=== PATIENT | male | born 1950 | race Caucasian/White ===

== ENCOUNTER 2016-07-15 16:37 | Inpatient (IN) | payer SELFPAY ==
[~2016-07-15] VITALS: Ht 185.4 cm; Wt 130.0 kg
[2016-07-15] VITALS (8 sets, daily range): BP systolic 118–148; BP diastolic 62–75; PULSE 96–105; RESP 16–22; TEMP 97.8; O2SAT 79–93
[2016-07-15] MEDS ORDERED: IPRAAER INH (17:18)
[2016-07-15] MEDS ORDERED: SPIRCAP INH (17:18)
[2016-07-15] MEDS ORDERED: NOVOLOGP2 SQ (17:18)
[2016-07-15] MEDS ORDERED: NITR0.2D T-DERMAL (17:18)
[2016-07-15] MEDS ORDERED: ATOR40TA16 PO (17:18)
[2016-07-15] MEDS ORDERED: LANTUS2P SQ (17:18)
[2016-07-15] MEDS ORDERED: LISI-515 PO (17:18)
[2016-07-15] MEDS ORDERED: METO25TA3 PO (17:18)
[2016-07-15] MEDS ORDERED: ASPI81CH CHEW (17:18)
[2016-07-15] MEDS ORDERED: FURO20TA PO (17:18)
--- NOTE | 2016-07-15 17:18 | PD ---
HPI . fatigue x 3 days Chief Complaint: General Weakness Time Seen by Provider: 17:38 Travel History International Travel<30 days: No Contact w/Intl Traveler<30days: No Traveled to known affect area: No History of Present Illness HPI 65 yr old male visiting from [place] with HTN, HLD, DM, COPD requiring oxygen, Old IA in 2009, CHF, and OA here with c/o generalized fatigue/weakness. Patient started off with diarrhea 3 days ago, which is now subsided. He is concerned because he is very weak and has not had much of an appetite. Despite not eating, patient continued with lantus administration and had an episode where he was weak and had a very low blood sugar. He thinks he may have had a fever a few days ago, but never checked his temperature. He also reports some right shoulder/back pain that was present and now gone. He is concerned because of his past medical history. He is accompanied by his . At the time of examination, patient admits to weakness/fatigue, which is what brought him here. He is also experiencing SOB and nausea. He denies any fever, chills, cold sxs, cp, vomiting, abdominal pain or diarrhea. PFSH Past Medical History Cardiovascular Problems: Yes (2009) Congestive Heart Failure: Yes COPD: Yes Coronary Artery Disease: Yes Diabetes: Yes Patient Takes Glucophage: Yes Diminished Hearing: No Hypertension: Yes Respiratory: Yes (COPD, O2) Myocardial Infarction: Yes Past Surgical History Cholecystectomy: Yes Other Surgery: Yes (hemmorhoidectomy) Social History Alcohol Use: Yes Tobacco Use: Yes (quit) Substance Use: No Allergies-Medications (Allergen,Severity, Reaction): Coded Allergies: Penicillin (Verified Allergy, Intermediate, Rash, 07/15/16) Reported Meds & Prescriptions Reported Meds & Active Scripts Active Reported Novolog Inj (Insulin Aspart) 1,000 Unit/10 Ml Vial 0 SQ DIRECTED Sliding Scale as directed. Lantus Inj (Insulin Glargine) 100 Unit/Ml Inj 60 Units SQ BID Combivent Respimat Inh (Ipratropium-Albuterol Inh) 20-100 Jail/Act Aero 1 Puff INH QID Spiriva Handihaler (Tiotropium Inh) 18 Mcg Cap 18 Mcg INH DAILY 1 capsule = 18 mcg Nitro-Dur Patch 24 HR (Nitroglycerin) 0.2 Mg/Hr Patch 0.2 Mg T-DERMAL DAILY Aspirin 81 Mg Chew 81 Mg CHEW DAILY Furosemide 20 Mg Tab 20 Mg PO DAILY Atorvastatin (Atorvastatin Calcium) 40 Mg Tab 40 Mg PO HS Lisinopril 20 Mg Tab 20 Mg PO DAILY Metoprolol Tartrate 25 Mg Tab 20 Mg PO BID Review of Systems General / Constitutional: No: Fever Eyes: No: Visual changes HENT: No: Headaches Cardiovascular: No: Chest Pain or Discomfort Respiratory: No: Shortness of Breath Gastrointestinal: Positive: Nausea, No: Vomiting, Diarrhea, Abdominal Pain Genitourinary: No: Dysuria Musculoskeletal: No: Pain Skin: No Rash Neurologic: No: Weakness Psychiatric: No: Depression Endocrine: No: Polydipsia Hematologic/Lymphatic: No: Easy Bruising Physical Exam Narrative GENERAL: AAOX3, on nasal canula, obese, in no acute distress HEAD: normocephalic, atraumatic EARS: normal pinna, no deformities EYES: conjunctiva clear, no injection, no icterus, MOUTH: moist mucous membranes, NECK: supple without any lymphadenopathy RESP: diminished breath sounds b/l, no rhonchi, wheezing or rales CARD: RRR, s1 and s2, no murmur, rubs, or gallop ABD: soft, nontender, nondistended, normoactive bowel sounds NEURO: grossly intact, no focal deficits, CN 2-12 intact, UE & LE strength normal, bottom buffer normal b/l BACK: no spinal tenderness, no paraspinal tenderness, no obvious deformity PSYCH: AAOx3, normal affect Data Data Last Documented VS Vital Signs Date Time Temp Pulse Resp B/P Pulse Ox O2 Delivery O2 Flow Rate FiO2 07/15/16 22:42 96 18 138/62 91 Room Air 07/15/16 19:29 5 07/15/16 16:44 97.8 Orders Complete Blood Count With Diff (07/15/16 17:29) Comprehensive Metabolic Panel (07/15/16 17:29) Chest, Single Ap (07/15/16 17:29) Electrocardiogram (07/15/16 17:29) Ckmb (Isoenzyme) Profile (07/15/16 17:29) Magnesium (Mg) (07/15/16 17:29) Prothrombin Time / Inr (Pt) (07/15/16 17:29) Act Partial Throm Time (Ptt) (07/15/16 17:29) Troponin I (07/15/16 17:29) Ecg Monitoring (07/15/16 17:29) Bilateral Bp Monitoring (07/15/16 17:29) Iv Access Insert/Monitor (07/15/16 17:29) Oximetry (07/15/16 17:29) Oxygen Administration (07/15/16 17:29) Sodium Chloride 0.9% Flush (Ns Flush) (07/15/16 17:30) Sodium Chloride 0.9% Flush (Ns Flush) (07/15/16 18:00) Methylprednisolone So Succ Inj (Solumedr (07/15/16 18:00) Albuterol-Ipratropium Neb (Duoneb Neb) (07/15/16 18:00) Ct Pulmonary Angiogram (07/15/16 ) Consult Vascular Access Team (07/15/16 ) B-Type Natriuretic Peptide (07/15/16 18:39) Iohexol 350 Inj (Omnipaque 350 Inj) (07/15/16 20:26) Ceftriaxone Inj (Rocephin Inj) (07/15/16 22:15) Azithromycin Inj (Zithromax Inj) (07/15/16 22:15) Admit Order (Ed Use Only) (07/15/16 22:40) Place In Observation (07/15/16 ) Vital Signs (Adult) Q4H (07/15/16 22:40) Activity Oob With Assistance (07/15/16 22:40) Office Equipment Technician / Telemetry .CONTINUOUS (07/15/16 22:40) Diet Heart Healthy (07/16/16 Breakfast) Sodium Chloride 0.9% Flush (Ns Flush) (07/15/16 22:45) Sodium Chloride 0.9% Flush (Ns Flush) (07/16/16 09:00) Basic Metabolic Panel (Bmp) (07/16/16 06:00) Complete Blood Count With Diff (07/16/16 06:00) Resp Oxygen Oj C Titrat 1-4 L (07/15/16 ) Enoxaparin Inj (Lovenox Inj) (07/16/16 09:00) Naloxone Inj (Narcan Inj) (07/15/16 22:45) Levofloxacin 750 Mg Premix Inj (Levaquin (07/16/16 09:00) Bedside Glucose JOSE ANTONIO.AC&HS (07/15/16 22:44) ^ Blood Glucose Goal (Criteria (07/15/16 22:44) ^ Hypoglycemia 51 - 69 Mg/Dl (07/15/16 22:44) ^ Hypoglycemia 50 Mg/Dl Or < (07/15/16 22:44) ^ Notify Dr: Other (07/15/16 22:44) Dextrose 50% In Patrice (Vial) Inj (D50w (Vi (07/15/16 22:45) Glucagon Inj (Glucagon Inj) (07/15/16 22:45) Medium Novolog Scale (07/16/16 07:00) Diet 1800 Ada Cons Carb (07/16/16 Breakfast) Labs Laboratory Tests Test 07/15/16 18:15 White Blood Count 10.5 TH/MM3 Red Blood Count 4.62 MIL/MM3 Hemoglobin 14.1 GM/DL Hematocrit 42.6 % Mean Corpuscular Volume 92.2 FL Mean Corpuscular Hemoglobin 30.6 PG Mean Corpuscular Hemoglobin 33.2 % Concent Red Cell Distribution Width 13.9 % Platelet Count 242 TH/MM3 Mean Platelet Volume 9.2 FL Neutrophils (%) (Auto) 69.2 % Lymphocytes (%) (Auto) 14.4 % Monocytes (%) (Auto) 10.3 % Eosinophils (%) (Auto) 5.5 % Basophils (%) (Auto) 0.6 % Neutrophils # (Auto) 7.3 TH/MM3 Lymphocytes # (Auto) 1.5 TH/MM3 Monocytes # (Auto) 1.1 TH/MM3 Eosinophils # (Auto) 0.6 TH/MM3 Basophils # (Auto) 0.1 TH/MM3 CBC Comment DIFF FINAL Differential Comment Prothrombin Time 10.2 SEC Prothromb Time International 0.9 RATIO Ratio Activated Partial 29.9 SEC Thromboplast Time Sodium Level 134 MEQ/L Potassium Level 4.4 MEQ/L Chloride Level 94 MEQ/L Carbon Dioxide Level 35.4 MEQ/L Anion Gap 5 MEQ/L Blood Urea Nitrogen 25 MG/DL Creatinine 0.97 MG/DL Estimat Glomerular Filtration 78 ML/MIN Rate Random Glucose 119 MG/DL Calcium Level 9.1 MG/DL Magnesium Level 1.9 MG/DL Total Bilirubin 0.3 MG/DL Aspartate Amino Transf 21 U/L (AST/SGOT) Alanine Aminotransferase 17 U/L (ALT/SGPT) Alkaline Phosphatase 115 U/L Total Creatine Kinase 81 U/L Troponin I LESS THAN 0.02 NG/ML B-Type Natriuretic Peptide 44 PG/ML Total Protein 7.6 GM/DL Albumin 2.6 GM/DL MDM Medical Decision Making Medical Screen Exam Complete: Yes Emergency Medical Condition: Yes Medical Record Reviewed: Yes (no records on file ) Differential Diagnosis viral gastroenteritis, PNA, ACS, symptomatic anemia, COPD exacerbation Narrative Course 65 yr old male visiting from [place] with HTN, HLD, DM, COPD requiring oxygen, Old IA in 2009, CHF, and OA here with c/o generalized fatigue/weakness. Patient started off with diarrhea 3 days ago, which is now subsided. He is concerned because he is very weak and has not had much of an appetite. Despite not eating, patient continued with lantus administration and had an episode where he was weak and had a very low blood sugar. He thinks he may have had a fever a few days ago, but never checked his temperature. He also reports some right shoulder/back pain that was present and now gone. He is concerned because of his past medical history. He is accompanied by his . At the time of examination, patient admits to weakness/fatigue, which is what brought him here. He is also experiencing SOB and nausea. He denies any fever, chills, cold sxs, cp, vomiting, abdominal pain or diarrhea. Patient seen and examined. Case discussed with Dr. Felton Recommend labs, CXR, Cardiac enzymes, Mag, Labs reviewed, CBC fairly unremarkable. BMP with mild low Na+, elevated BUN, decreased albumin CXR without any acute process. CT angio: No PE, however + consolidation in right upper lobe, along with right hilar mass, granulomatous lung disease (no reports of TB per patient) I have personally discussed findings with patient and his . Recommend outpt f/u regarding mass. Azithromycin and Rocephin in ED. Admit with Pneumonia, Fatigue and Hypoxemia. 2239: Discussed with Dr. Oneal: Patient admitted to 23 hour obs. Diagnosis Primary Impression: Right upper lobe pneumonia Qualified Code: J18.1 - Pneumonia of right upper lobe due to infectious organism Additional Impression: Hypoxemia Admitting Information Admitting Physician Requests: Admit Condition: Stable Yuko Brian Jul 15, 2016 17:18
[2016-07-15] MEDS ORDERED: SODIUM CHLORIDE 0.9% FLUSH 5 ML FLUSH IVF PRN ×2 (17:30→18:00)
[2016-07-15] MEDS ORDERED: methylPREDNISolone SOD SUCC 125 MG/2 ML VIAL IVP ONE (18:00)
--- NOTE | 2016-07-15 18:05 | PD ---
Data Data Last Documented VS Vital Signs Date Time Temp Pulse Resp B/P Pulse Ox O2 Delivery O2 Flow Rate FiO2 07/15/16 22:42 96 18 138/62 91 Room Air 07/15/16 19:29 5 07/15/16 16:44 97.8 Orders Complete Blood Count With Diff (07/15/16 17:29) Comprehensive Metabolic Panel (07/15/16 17:29) Chest, Single Ap (07/15/16 17:29) Electrocardiogram (07/15/16 17:29) Ckmb (Isoenzyme) Profile (07/15/16 17:29) Magnesium (Mg) (07/15/16 17:29) Prothrombin Time / Inr (Pt) (07/15/16:29) Act Partial Throm Time (Ptt) (07/15/16:29) Troponin I (07/15/16 17:29) Ecg Monitoring (07/15/16 17:29) Bilateral Bp Monitoring (07/15/16 17:29) Iv Access Insert/Monitor (07/15/16 17:29) Oximetry (07/15/16 17:29) Oxygen Administration (07/15/16 17:29) Sodium Chloride 0.9% Flush (Ns Flush) (07/15/16 17:30) Sodium Chloride 0.9% Flush (Ns Flush) (07/15/16 18:00) Methylprednisolone So Succ Inj (Solumedr (07/15/16 18:00) Albuterol-Ipratropium Neb (Duoneb Neb) (07/15/16 18:00) Ct Pulmonary Angiogram (07/15/16 ) Consult Vascular Access Team (07/15/16 ) B-Type Natriuretic Peptide (07/15/16 18:39) Iohexol 350 Inj (Omnipaque 350 Inj) (07/15/16 20:26) Ceftriaxone Inj (Rocephin Inj) (07/15/16 22:15) Azithromycin Inj (Zithromax Inj) (07/15/16 22:15) Admit Order (Ed Use Only) (07/15/16 22:40) Labs Laboratory Tests Test 07/15/16 18:15 White Blood Count 10.5 TH/MM3 Red Blood Count 4.62 MIL/MM3 Hemoglobin 14.1 GM/DL Hematocrit 42.6 % Mean Corpuscular Volume 92.2 FL Mean Corpuscular Hemoglobin 30.6 PG Mean Corpuscular Hemoglobin 33.2 % Concent Red Cell Distribution Width 13.9 % Platelet Count 242 TH/MM3 Mean Platelet Volume 9.2 FL Neutrophils (%) (Auto) 69.2 % Lymphocytes (%) (Auto) 14.4 % Monocytes (%) (Auto) 10.3 % Eosinophils (%) (Auto) 5.5 % Basophils (%) (Auto) 0.6 % Neutrophils # (Auto) 7.3 TH/MM3 Lymphocytes # (Auto) 1.5 TH/MM3 Monocytes # (Auto) 1.1 TH/MM3 Eosinophils # (Auto) 0.6 TH/MM3 Basophils # (Auto) 0.1 TH/MM3 CBC Comment DIFF FINAL Differential Comment Prothrombin Time 10.2 SEC Prothromb Time International 0.9 RATIO Ratio Activated Partial 29.9 SEC Thromboplast Time Sodium Level 134 MEQ/L Potassium Level 4.4 MEQ/L Chloride Level 94 MEQ/L Carbon Dioxide Level 35.4 MEQ/L Anion Gap 5 MEQ/L Blood Urea Nitrogen 25 MG/DL Creatinine 0.97 MG/DL Estimat Glomerular Filtration 78 ML/MIN Rate Random Glucose 119 MG/DL Calcium Level 9.1 MG/DL Magnesium Level 1.9 MG/DL Total Bilirubin 0.3 MG/DL Aspartate Amino Transf 21 U/L (AST/SGOT) Alanine Aminotransferase 17 U/L (ALT/SGPT) Alkaline Phosphatase 115 U/L Total Creatine Kinase 81 U/L Troponin I LESS THAN 0.02 NG/ML B-Type Natriuretic Peptide 44 PG/ML Total Protein 7.6 GM/DL Albumin 2.6 GM/DL [facility] Supervised Visit with ODELL: Yes Narrative Course I, Dr. Felton, have reviewed the advance practice practitioner's documentation and am in agreement, met with the patient face to face, made the diagnosis, and the medical decision making was done by me. *My assessment and Findings: Patient is a 65-year-old male presents emergency department for evaluation of generalized weakness and shortness of breath. Patient did just travel from [place] down to [place]. No history of blood clots in the past. Does have a history of COPD and is on home oxygen. Patient's lungs are clear he is mildly tachycardic and requiring increased oxygen over baseline. Likely will be admitted for COPD exacerbation versus PE with a CT pending. Patient is morbidly obese lung sounds are clear minimal tachypnea. Scripts Levofloxacin (Levaquin)750 Mg Nea086 Mg PO DAILY #5 TAB Ref 0 Prov:Mary Peraza PA-C 07/16/16 Kike Felton MD Jul 15, 2016 18:05
[2016-07-15 18:52] LABS: AUTOMATED NEUTROPHIL # 7.3 TH/MM3 (1.8-7.7); BASOPHIL # 0.1 TH/MM3 (0-0.2); BASOPHIL % 0.6 % (0.0-2.0); EOSINOPHIL # 0.6 TH/MM3 (0-0.4); EOSINOPHIL % 5.5 % (0.0-4.0); HEMATOCRIT 42.6 % (39.0-51.0); HEMO FLAGS DIFF FINAL; LYMPH % 14.4 % (9.0-44.0); LYMPHOCYTE # 1.5 TH/MM3 (1.0-4.8); MEAN CELL VOLUME 92.2 FL (80.0-100.0); MEAN CORPUSCULAR HEMOGLOBIN 30.6 PG (27.0-34.0); MEAN CORPUSCULAR HGB CONC 33.2 % (32.0-36.0); MONO % 10.3 % (0.0-8.0); NEUT % 69.2 % (16.0-70.0); PLATELET COUNT 242 TH/MM3 (150-450); RED BLOOD COUNT 4.62 MIL/MM3 (4.50-5.90); RED CELL DISTRIBUTION WIDTH 13.9 % (11.6-17.2); WHITE BLOOD COUNT 10.5 TH/MM3 (4.0-11.0)
--- NOTE | 2016-07-15 18:56 | RADRPT ---
EXAM DATE/TIME: 07/15/2016 18:08 [facility] COMPARISON: No previous studies available for comparison. INDICATIONS : Short of breath. MEDICAL HISTORY : Chronic obstructive pulmonary disease. SURGICAL HISTORY : None. ENCOUNTER: Initial ACUITY: 2 days PAIN SCORE: 0/10 LOCATION: Bilateral chest FINDINGS: The heart size is upper limits of normal for size. The lungs are free of focal consoli dation. There is a calcified granuloma at the lateral mid left lung. A significant effusion is not seen. Free air is not seen in the peritoneal cavity. CONCLUSION: No acute abnormality is seen. Cullen Mcdonough MD on July 15, 2016 at 18:48 Board Certified Radiologist. This report was verified electronically.
[2016-07-15 19:04] LABS: APTT (PATIENT) 29.9 SEC (24.3-30.1); INTERNATIONAL NORMALIZED RATIO 0.9 RATIO; PROTHROMBIN TIME - PATIENT 10.2 SEC (9.8-11.6)
[2016-07-15] MEDS: RESP: ALBUTEROL 2.5 MG/IPRATROPIUM 0.5 MG NEB (SCH) INH ×2 (19:19→19:20)
[2016-07-15 19:40] LABS: ALKALINE PHOSPHATASE 115 U/L (45-117); ALT (GPT) 17 U/L (12-78); ANION GAP 5 MEQ/L (5-15); AST (GOT) 21 U/L (15-37); BICARBONATE 35.4 MEQ/L (21.0-32.0); BLOOD UREA NITROGEN 25 MG/DL (7-18); CHLORIDE 94 MEQ/L (98-107); GLOMERULAR FILTRATION RATE 78 ML/MIN (>89); MAGNESIUM 1.9 MG/DL (1.5-2.5); POTASSIUM 4.4 MEQ/L (3.5-5.1); SODIUM (NA) 134 MEQ/L (136-145); TOTAL BILIRUBIN ADULT 0.3 MG/DL (0.2-1.0)
[2016-07-15 19:41] LABS: CREATINE KINASE 81 U/L (39-308)
[2016-07-15] MEDS ORDERED: IOHEXOL 350 MG/ML 10 ML VIAL (for RAD DIAG) IV ONE (20:26)
--- NOTE | 2016-07-15 21:41 | RADRPT ---
EXAM DATE/TIME: 07/15/2016 20:18 [facility] COMPARISON: No previous studies available for comparison. INDICATIONS : Shortness of breath with tachycardia. IV CONTRAST: 75 cc Omnipaque 350 (iohexol) IV RADIATION DOSE: 24.75 CTDIvol (mGy) MEDICAL HISTORY : Cardiovascular disease. Chronic obstructive pulmonary disease. Diabetes mellitu s type 2. SURGICAL HISTORY : Cholecystectomy. ENCOUNTER: Initial ACUITY: 1 day PAIN SCALE: 0/10 LOCATION: chest TECHNIQUE: Volumetric scanning of the chest was performed using a pulmonary embolism protocol MIP images were reconstructed. Using automated exposure control and adjustment of the mA and/or kV acco rding to patient size, radiation dose was kept as low as reasonably achievable to obtain optimal diag nostic quality images. FINDINGS: There are increased parenchymal markings seen at the anteiror inferior aspect of the ri ght upper lobe. This appears to more closely resemble consolidation throughout this region. There i s a mass at the right hilum measuring 4.0 x 2.2 cm. This is thought to likely represent adenopathy. A central mass could have a similar appearance. There also appear to be suspected smaller lymph node s at the right hilum in the subcarinal region, precarinal and right paratracheal regions. There are some prominent lymph nodes seen in the left hilar region. Calcified lymph nodes are seen in the left hilar region. There are calcified granulomas seen in the left upper lobe inferiorly. There is also a calcified granuloma in the left lower lobe. Coronary artery calcifications are present. The visual ized structures in the upper abdomen are unremarkable. The pulmonary arterial structures are fairly well demonstrated. A pulmonary embolus is not seen. CONCLUSION: 1. Consolidation seen at the inferior right upper lobe. This could be related to inflammatory change. It most closely resembles inflammatory change. It could be post obstructive potentially. There does appear to be a central mass in the right hilum. This could be a primary neoplasm versus a prominent lymph node. There is adenopathy throughout the rest of the hilar regions and mediastinum. 2. No pulmonary embolus. 3. Evidence of granulomatous disease in the left lung. Cullen Mcdonough MD on July 15, 2016 at 21:23 Board Certified Radiologist. This report was verified electronically.
[2016-07-15] MEDS ORDERED: AZITHROMYCIN INJ 500 MG in SODIUM CHLOR 0.9% 250 ML INJ 250 ML IV ONE (22:15)
[2016-07-15] MEDS ORDERED: cefTRIAXone INJ 1,000 MG in SODIUM CHLORIDE 0.9% INJ 100 ML IV ONE (22:15)
[2016-07-15] MEDS ORDERED: NALOXONE HCL 0.4 MG/ML AMP IV PRN (22:45)
[2016-07-15] MEDS ORDERED: GLUCAGON 1 MG/ML VIAL OTHER PRN (22:45)
[2016-07-15] MEDS ORDERED: SODIUM CHLORIDE 0.9% FLUSH 5 ML FLUSH FLUSH PRN (22:45)
[2016-07-15] MEDS ORDERED: DEXTROSE 50% IN WATER 50 ML VIAL(D50) IV PUSH PRN (22:45)
[2016-07-15] MEDS ORDERED: RESP: ALBUTEROL 2.5 MG/IPRATROPIUM 0.5 MG NEB (PRN) NEB (23:30)
[2016-07-16] VITALS (7 sets, daily range): BP systolic 124–144; BP diastolic 54–63; PULSE 80–102; RESP 18–20; TEMP 97.7–98.3; O2SAT 90–96
--- NOTE | 2016-07-16 01:42 | HHI.HP ---
HPI [facility] Primary Care Physician Unknown Admission Diagnosis PNA, Abnormal EKG Diagnoses: Chief Complaint: Cough, I just do not feel well Travel History International Travel<30 Days: No Contact w/Intl Traveler <30 Da: No Traveled to Known Affected Are: No History of Present Illness History from patient, ER physician communication, and review of medical records. Patient reported that he came to the hospital because he just has not been feeling well in the past few days. 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 He states that he has been coughing a lot. Reports of yellowish sputum. Also reports of subjective fevers and chills. Denies chest pains. Denies any nausea/vomiting/diarrhea/urinary burning or pain on urination. Denies any hematemesis/hematochezia/melena/hematuria. Patient states he is on home oxygen. 2 L. He reports of history of COPD. He quit smoking about 3 years ago or so. Patient reports of history of diabetes. He states he takes 30 high doses of insulin at home. He is worried his sugars will be held while in hospital. Review of Systems 12 point review of system is obtained and negative apart from what is mentioned in HPI Past Family Social History Past Medical History Hypertension Diabetes CADstatus post [place] in 2009 [employer] home oxygen Past Surgical History Hemorrhoidectomy Cholecystectomy Left knee surgery Reported Medications Patient's medications listed in EMRreviewed Allergies: Coded Allergies: Penicillin (Verified Allergy, Intermediate, Rash, 07/15/16) Family History Denies any family history of any medical issues Social History Used to smoke cigarettes, quit. Denies any alcohol abuse or drug abuse. Physical Exam Vital Signs Vital Signs Date Time Temp Pulse Resp B/P Pulse Ox O2 Delivery O2 Flow Rate FiO2 07/16/16 00:19 102 07/16/16 00:16 98.3 101 20 144/63 96 07/15/16 22:42 96 18 138/62 91 Room Air 07/15/16 19:29 93 Aerosol Mask 5 07/15/16 19:24 89 Nasal Cannula 6.00 07/15/16 19:13 102 22 145/67 90 Nasal Cannula 5 07/15/16 17:59 105 20 118/75 91 Nasal Cannula 4 07/15/16 17:12 18 Room Air 07/15/16 17:12 91 Nasal Cannula 4 07/15/16 17:12 91 Nasal Cannula 4 07/15/16 16:46 16 84 Nasal Cannula 4 07/15/16 16:44 97.8 102 16 148/70 79 Room Air Physical Exam GENERAL: This is a well-nourished, well-developed patient, in no apparent distress. SKIN: No rashes, ecchymoses or lesions. Cool and dry. HEAD: Atraumatic. Normocephalic. No temporal or scalp tenderness. EYES: No scleral icterus. No injection or drainage. ENT: Nose without bleeding, purulent drainage or septal hematoma.Airway patent. NECK: Trachea midline. No JVD CARDIOVASCULAR: Regular rate and rhythm without murmurs, gallops, or rubs. RESPIRATORY: Clear to auscultation. Breath sounds equal bilaterally. No wheezes , rales, or rhonchi. GASTROINTESTINAL: Abdomen soft, non-tender, nondistended. No guarding. MUSCULOSKELETAL: Extremities without clubbing, cyanosis, or edema. No joint tenderness, effusion, or edema noted. No calf tenderness. NEUROLOGICAL: Awake and alert. Motor and sensory grossly within normal limt Normal speech. Laboratory Laboratory Tests Test 07/15/16 18:15 White Blood Count 10.5 Red Blood Count 4.62 Hemoglobin 14.1 Hematocrit 42.6 Mean Corpuscular Volume 92.2 Mean Corpuscular Hemoglobin 30.6 Mean Corpuscular Hemoglobin 33.2 Concent Red Cell Distribution Width 13.9 Platelet Count 242 Mean Platelet Volume 9.2 Neutrophils (%) (Auto) 69.2 Lymphocytes (%) (Auto) 14.4 Monocytes (%) (Auto) 10.3 Eosinophils (%) (Auto) 5.5 Basophils (%) (Auto) 0.6 Neutrophils # (Auto) 7.3 Lymphocytes # (Auto) 1.5 Monocytes # (Auto) 1.1 Eosinophils # (Auto) 0.6 Basophils # (Auto) 0.1 CBC Comment DIFF FINAL Differential Comment Prothrombin Time 10.2 Prothromb Time International 0.9 Ratio Activated Partial 29.9 Thromboplast Time Sodium Level 134 Potassium Level 4.4 Chloride Level 94 Carbon Dioxide Level 35.4 Anion Gap 5 Blood Urea Nitrogen 25 Creatinine 0.97 Estimat Glomerular Filtration 78 Rate Random Glucose 119 Calcium Level 9.1 Magnesium Level 1.9 Total Bilirubin 0.3 Aspartate Amino Transf 21 (AST/SGOT) Alanine Aminotransferase 17 (ALT/SGPT) Alkaline Phosphatase 115 Total Creatine Kinase 81 Troponin I LESS THAN 0.02 B-Type Natriuretic Peptide 44 Total Protein 7.6 Albumin 2.6 Result Diagram: 07/15/16181407/15/161814 Imaging Last 48 hours Impressions Chest X-Ray 07/15/16 1729 Signed Impressions: Service Date/Time: Friday, July 15, 2016 18:08 - CONCLUSION: No acute abnormality is seen. Cullen Mcdonough MD CT Angiography 07/15/16 0000 Signed Impressions: Service Date/Time: Friday, July 15, 2016 20:18 - CONCLUSION: 1. Consolidation seen at the inferior right upper lobe. This could be related to inflammatory change. It most closely resembles inflammatory change. It could be post obstructive potentially. There does appear to be a central mass in the right hilum. This could be a primary neoplasm versus a prominent lymph node. There is adenopathy throughout the rest of the hilar regions and mediastinum. 2. No pulmonary embolus. 3. Evidence of granulomatous disease in the left lung. Cullen Mcdonough MD Assessment and Plan Problem List: (1) Right upper lobe pneumonia ICD Code: J18.1 Status: Acute (2) Hypoxemia ICD Code: R09.02 Status: Acute Assessment and Plan Impression: Pneumonia Hypoxiasecondary to pneumonia in a patient who is already home oxygen dependent. Patient is saturating about 90% on 4-6 L nasal cannula. His home oxygen is at 2 L. Hyperglycemiain a diabetic with acute infection. Patient also is eating quite a bit while in hospital. Hypertension Diabetes CADstatus post [place] in 2009 [facility] home oxygen Plan: Patient received Rocephin and azithromycin in ER. levofloxacin 750 mg IV every 24 hours. We'll follow up clinically. In terms of his hypoxia, be cautious with increase in FiO2. Patient is a chronic CO2 retainer compensated. ABG was done. Reviewed. . Nebulizer treatments scheduled and when necessary. We'll monitor fingersticks closely. Cover with sliding scale coverage high dose insulin. Resume home meds. Patient states he takes he takes Lantus 60 units twice a day. Since his diet in hospital is can be different, I would decrease it to 30 units twice a day and follow his blood sugars. May need adjustment in future. DVT prophylaxison Lovenox. GI prophylaxis on pantoprazole. Discussed Condition With Patient, ER physician Physician Certification 2 Midnight Certification Type: Admission for Inpatient Services Order for Inpatient Services The services are ordered in accordance with Medicare regulations or non- Medicare payer requirements, as applicable. In the case of services not specified as inpatient-only, they are appropriately provided as inpatient services in accordance with the 2-midnight benchmark. Estimated LOS (days): 2 days is the estimated time the patient will need to remain in the hospital, assuming treatment plan goals are met and no additional complications. Post-Hospital Plan: Home Problem Qualifiers (1) Right upper lobe pneumonia: Qualified Code: J18.1 - Pneumonia of right upper lobe due to infectious organism Jose Oneal MD Jul 16, 2016 01:42
[2016-07-16] MEDS: RESP: ALBUTEROL 2.5 MG/IPRATROPIUM 0.5 MG NEB (SCH) NEB ×2 (03:45→09:46)
[2016-07-16 03:59] LABS: BLOOD GAS BASE EXCESS 3.3 mmol/L (-2-2); BLOOD GAS HCO3 28 mmol/L (22-26); BLOOD GAS METHEMOGLOBIN 1.7 % (0-2); BLOOD GAS O2 HGB SATURATION 95 % (90-100); BLOOD GAS OXYGEN CONTENT 18.6 Vol % (12.0-20.0); BLOOD GAS PCO2 51 mmHg (38-42); BLOOD GAS PO2 122 mmHG (61-120); BLOOD GAS TOTAL HGB 13.8 G/DL (12.0-16.0); TEMP CORR TO 98.6
[2016-07-16 04:01] LABS: CRITICAL VALUE YES; DRAW SITE LT RADIAL; FIO2 100 %; LITER FLOW 15 L/M; NUMBER OF ARTERIAL PUNCTURES 1; OXYGEN DEVICE NRB; STAT YES; ULNAR PULSE PRESENT
[2016-07-16 05:04] LABS: AUTOMATED NEUTROPHIL # 7.4 TH/MM3 (1.8-7.7); BASOPHIL % 0.1 % (0.0-2.0); HEMATOCRIT 38.1 % (39.0-51.0); HEMO FLAGS DIFF FINAL; LYMPH % 7.7 % (9.0-44.0); LYMPHOCYTE # 0.6 TH/MM3 (1.0-4.8); MEAN CELL VOLUME 93.1 FL (80.0-100.0); MEAN CORPUSCULAR HEMOGLOBIN 31.1 PG (27.0-34.0); MEAN CORPUSCULAR HGB CONC 33.5 % (32.0-36.0); MONO % 1.8 % (0.0-8.0); NEUT % 90.4 % (16.0-70.0); PLATELET COUNT 219 TH/MM3 (150-450); RED BLOOD COUNT 4.09 MIL/MM3 (4.50-5.90); RED CELL DISTRIBUTION WIDTH 13.6 % (11.6-17.2); WHITE BLOOD COUNT 8.2 TH/MM3 (4.0-11.0)
[2016-07-16 05:36] LABS: BICARBONATE 29.4 MEQ/L (21.0-32.0); POTASSIUM 4.4 MEQ/L (3.5-5.1)
[2016-07-16] MEDS ORDERED: GLUCAGON 1 MG/ML VIAL OTHER PRN (06:15)
[2016-07-16] MEDS ORDERED: DEXTROSE 50% IN WATER 50 ML VIAL(D50) IV PUSH PRN (06:15)
[2016-07-16] MEDS ORDERED: INSULIN HUMAN REGULAR 1,000 UNITS/10 ML VIAL IVP ONE (06:15)
[2016-07-16] MEDS ORDERED: INSULIN ASPART SUPPLEMENTAL SCALE SQ SCH ×2 (07:00)
[2016-07-16] MEDS ORDERED: FUROSEMIDE 20 MG TAB PO SCH (09:00)
[2016-07-16] MEDS ORDERED: SODIUM CHLORIDE 0.9% FLUSH 5 ML FLUSH FLUSH SCH (09:00)
[2016-07-16] MEDS ORDERED: LEVOFLOXACIN 750 MG PREMIX INJ 150 ML IV SCH (09:00)
[2016-07-16] MEDS ORDERED: ASPIRIN 81 MG CHEW TAB CHEW SCH (09:00)
[2016-07-16] MEDS ORDERED: LISINOPRIL 20 MG TAB PO SCH (09:00)
[2016-07-16] MEDS ORDERED: METOPROLOL TARTRATE 25 MG TAB PO SCH (09:00)
[2016-07-16] MEDS ORDERED: ENOXAPARIN SODIUM 40 MG/0.4 ML SYRINGE SQ SCH (09:00)
[2016-07-16] MEDS ORDERED: INSULIN DETEMIR 100 UNITS/ML VIAL SQ SCH (09:00)
--- NOTE | 2016-07-16 10:28 | HHI.PR ---
Subjective Remarks Follow up for pneumonia. The patient reports over the past 3-4 days he has been coughing a lot, productive of yellow sputum, with subjective fevers, no chills. Denies chest pain. Shortness of breath at baseline with COPD. He wears 2L NC at home. The patient feels much better today and wants to go home. He is still slightly hypoxic, O2 sat 90% on 3L NC, recommended he continue his oxygen at 3L NC until he can see his doctor back home. He plans to travel back to [place] today. His airport representative Dr. Saucedo is located in [place], [place]. Thoroughly discussed the findings of his CT-PA, including the mass vs enlarged LN, also discussed possibility of needing a bronchoscopy with biopsy. The patient prefers to f/up with his own airport representative back home. Objective Vitals Vital Signs Date Time Temp Pulse Resp B/P Pulse Ox O2 Delivery O2 Flow Rate FiO2 07/16/16 09:47 90 Nasal Cannula 4.00 07/16/16 09:30 97.7 80 18 127/60 93 07/16/16 03:48 91 Nasal Cannula 4.00 07/16/16 03:25 98.2 90 20 124/54 91 07/16/16 03:06 94 Nasal Cannula 4.00 07/16/16 03:05 18 94 07/16/16 00:19 102 07/16/16 00:16 98.3 101 20 144/63 96 07/15/16 22:42 96 18 138/62 91 Room Air 07/15/16 19:29 93 Aerosol Mask 5 07/15/16 19:24 89 Nasal Cannula 6.00 07/15/16 19:13 102 22 145/67 90 Nasal Cannula 5 07/15/16 17:59 105 20 118/75 91 Nasal Cannula 4 07/15/16 17:12 18 Room Air 07/15/16 17:12 91 Nasal Cannula 4 07/15/16 17:12 91 Nasal Cannula 4 07/15/16 16:46 16 84 Nasal Cannula 4 07/15/16 16:44 97.8 102 16 148/70 79 Room Air I/O 07/15/16 07/15/16 07/15/16 07/16/16 07/16/16 07/16/16 07:00 15:00 23:00 07:00 15:00 23:00 Output Total 250 ml Balance -250 ml Output Urine Total 250 ml # Voids 1 Result Diagram: 07/16/16 0428 07/16/16 0428 Imaging Last Impressions Chest X-Ray 07/15/16 1729 Signed Impressions: Service Date/Time: Friday, July 15, 2016 18:08 - CONCLUSION: No acute abnormality is seen. Cullen Mcdonough MD CT Angiography 07/15/16 0000 Signed Impressions: Service Date/Time: Friday, July 15, 2016 20:18 - CONCLUSION: 1. Consolidation seen at the inferior right upper lobe. This could be related to inflammatory change. It most closely resembles inflammatory change. It could be post obstructive potentially. There does appear to be a central mass in the right hilum. This could be a primary neoplasm versus a prominent lymph node. There is adenopathy throughout the rest of the hilar regions and mediastinum. 2. No pulmonary embolus. 3. Evidence of granulomatous disease in the left lung. Cullen Mcdonough MD Objective Remarks GENERAL: Well-nourished, well-developed pleasant obese male patient in [facility]. SKIN: Warm and dry. No rash. HEAD: Normocephalic. Atraumatic. EYES: Pupils equal and round. No scleral icterus. No injection or drainage. ENT: No nasal bleeding or discharge. Mucous membranes pink and moist. NECK: Supple. Trachea midline. CARDIOVASCULAR: Regular rate and rhythm. S1, S2 noted. No murmur appreciated. RESPIRATORY: No accessory muscle use. Clear to auscultation. Breath sounds equal bilaterally. GASTROINTESTINAL: Abdomen soft, non-tender, nondistended. Normoactive bowel sounds x4. MUSCULOSKELETAL: No obvious deformities. Extremities without clubbing, cyanosis , or edema. NEUROLOGICAL: Awake and alert. No obvious cranial nerve deficits. Normal speech. PSYCHIATRIC: Appropriate mood and affect; insight and judgment normal. A/P Problem List: (1) Right upper lobe pneumonia ICD Code: J18.1 Status: Acute (2) Hypoxemia ICD Code: R09.02 Status: Acute Assessment and Plan 65-year-old male with history of HTN, DM, CAD, COPD, chronic respiratory failure on home O2, presents with cough, shortness of breath, fevers Community-acquired pneumonia: Images reviewedCXR unremarkable, CTPA showed consolidation of right upper lobe, could be inflammatory versus post obstructive ; also central mass in the right hilum, could be primary neoplasm versus prominent lymph node, has adenopathy throughout rest of hilar regions and mediastinum; no pulmonary embolus. Started on IV Levaquin, will discharge on Levaquin 750 mg daily 5 days. Supportive treatment with duonebs. Patient feeling much better and wants to go home. Acute on chronic respiratory failure: On 2 L nasal cannula at home, increased to 34 liters secondary to O2 sat 79% upon arrival. Given breathing treatments , antibiotics as above. Patient's O2 sat now stable at 90% on 3 L nasal cannula and patient instructed to continue this until follow-up with PCP/ airport representative back home. Lung mass: Seen on CTPA as above, could be primary neoplasm versus prominent lymph node. Thoroughly discussed the findings of his CT-PA, including the mass vs enlarged LN, also discussed possibility of needing a bronchoscopy with biopsy. The patient prefers to f/up with his own airport representative back home. His airport representative Dr. Saucedo is located in [place], [place]. Diabetes mellitus: Chronic, monitor Accu-Cheks and cover with high-dose SSI. Continue patient's Lantus. DVT prophylaxis: Lovenox Written by Mary Peraza, acting as scribe for Dr. Lopez on 07/16/16 at 10:27. The documentation accurately reflects the work performed [id number] by me on at 10:27. Discharge Planning Discharge patient to home Condition on discharge: Improved Heart healthy/diabetic Diet as tolerated Ad Crystal activity Rx written: Levaquin 750 mg daily 5 days Follow-up with primary care physician and airport representative Problem Qualifiers (1) Right upper lobe pneumonia: Qualified Code: J18.1 - Pneumonia of right upper lobe due to infectious organism Mary Peraza PA-C Jul 16, 2016 10:28 Dane Lopez DO Jul 16, 2016 21:11
[2016-07-16] MEDS ORDERED: LEVA750T PO (10:29)
--- NOTE | 2016-07-16 10:30 | HHI.DCPOC ---
Discharge Care Plan Diagnosis: (1) Right upper lobe pneumonia (2) Hypoxemia (3) Mass of right lung Goals to Promote Your Health * To prevent worsening of your condition and complications * To maintain your health at the optimal level Directions to Meet Your Goals Take your medications as prescribed Follow your dietary instruction Follow activity as directed Keep your appointments as scheduled Take your immunizations and boosters as scheduled If your symptoms worsen call your PCP, if no PCP go to Urgent Care Center or Emergency Room Smoking is Dangerous to Your Health. Avoid second hand smoke Call the 24-hour hour crisis hotline for domestic abuse at Mary Peraza PA-C Jul 16, 2016 10:30 am
[2016-07-16] MEDS ORDERED: INSULIN ASPART 1,000 UNITS/10 ML VIAL SQ SCH (12:00)
--- NOTE | 2016-07-16 15:51 | EKG ---
Date Performed: 07/15/2016 Time Performed: 17:53:32 PTAGE: 65 years EKG: SINUS TACHYCARDIA RIGHT BUNDLE BRANCH BLOCK Left axis deviation INFERIOR MYOCARDIAL INFARCT ION-of undetermined age. Nonspecific ST-T wave change ABNORMAL ECG NO PREVIOUS TRACING DOCTOR: Turner De La Cruz Interpretating Date/Time 07/16/2016 15:50:46
[2016-07-16] MEDS ORDERED: ATORVASTATIN 40 MG TAB PO SCH (21:00)
== END 2016-07-16 11:40 | disposition home or self-care (01) | DRG 190 ==
LOC: NEPE 16:37 → NEDA 22:42 → NEPGCP 07-16 00:09 → OBSVTOIN 07-16 00:55
PROVIDERS: ADMIT Hospitalist; ATTEND Hospitalist
DX: J44.0 Chronic obstructive pulmonary disease with (acute) lower respiratory infection (principal); J18.9 Pneumonia, unspecified organism; J96.21 Acute and chronic respiratory failure with hypoxia; Z99.81 Dependence on supplemental oxygen; E11.65 Type 2 diabetes mellitus with hyperglycemia; E66.01 Morbid (severe) obesity due to excess calories; R09.02 Hypoxemia; E78.5 Hyperlipidemia, unspecified; I10 Essential (primary) hypertension; I25.10 Atherosclerotic heart disease of native coronary artery without angina pectoris; R91.8 Other nonspecific abnormal finding of lung field; Z79.4 Long term (current) use of insulin; Z68.37 Body mass index [BMI] 37.0-37.9, adult; Z87.891 Personal history of nicotine dependence
CPT/HCPCS: 36600; 71010; 71275; 80048; 80053; 82550; 82805; 82948; 83735; 83880; 84484; 85025; 85610; 85730; 93005; 94640; 94664; 96365; 96374; G0378; J0456; J0696; J1650; J1815; J1956; J2930; J7050; Q9967